=== PATIENT | female | born 1955 | race Two or more races ===

== ENCOUNTER 2018-12-15 18:57 | Emergency (ER) | payer OTHER ==
[~2018-12-15] VITALS: Ht 154.9 cm; Wt 81.6 kg
[2018-12-15] MEDS ORDERED: PROTONIX40 MG (19:09)
[2018-12-15] MEDS ORDERED: CRESTOR20 MG (19:10)
[2018-12-15] MEDS ORDERED: FENOFIBRATE48 MG (19:10)
[2018-12-15] MEDS ORDERED: ZANTAC300 MG (19:11)
== END 2018-12-15 21:15 | disposition home or self-care (01) ==
LOC: ER 18:57
DX: K29.60 Other gastritis without bleeding (principal)

== ENCOUNTER 2021-04-07 07:35 | Day surgery (SDC) | payer OTHER ==
[~2021-04-07 07:35] MED LIST: CRESTOR20 MG; FENOFIBRATE48 MG; PROTONIX40 MG; ZANTAC300 MG
== END 2021-04-07 14:25 | disposition home or self-care (01) ==
LOC: AMB-ENDOS 07:35
PROVIDERS: ATTEND Colon & Rectal Surgery
DX: K57.32 Diverticulitis of large intestine without perforation or abscess without bleeding (principal); K64.1 Second degree hemorrhoids; Z20.822 Contact with and (suspected) exposure to COVID-19

== ENCOUNTER 2022-09-03 04:05 | Inpatient (IN) | payer OTHER ==
[~2022-09-03] VITALS: Ht 154.9 cm; Wt 74.8 kg
[2022-09-03] MEDS ORDERED: PEPCID20 MG (04:24)
[2022-09-03] MEDS ORDERED: ATACAND4 MG (04:24)
[2022-09-03] MEDS ORDERED: ANASTROZOLE1 MG (04:25)
== END 2022-09-06 16:00 | disposition home or self-care (01) | DRG 392 ==
LOC: ER 04:05 → SURH 13:47
PROVIDERS: ADMIT Colon & Rectal Surgery; ATTEND Colon & Rectal Surgery
PROC: 02HV33Z Insertion of Infusion Device into Superior Vena Cava, Percutaneous Approach (ICD-10-PCS; 2022-09-04)
PROC: BW21YZZ Computerized Tomography (CT Scan) of Abdomen and Pelvis using Other Contrast (ICD-10-PCS; principal; 2022-09-05)
DX: K29.70 Gastritis, unspecified, without bleeding (principal)

== ENCOUNTER 2024-05-20 10:30 | Emergency (ER) | payer OTHER ==
[~2024-05-20] VITALS: Ht 154.9 cm; Wt 71.7 kg
[~2024-05-20 10:30] MED LIST changes: +ANASTROZOLE1 MG; +ATACAND4 MG; +BUSPIRONE HCL7.5 MG; +CANDESARTAN CILE4 MG; +CITALOPRAM HBR10 MG; +FAMOTIDINE40 MG; +FENOFIBRATE160 MG; +FOLIC ACID1 MG; +GABAPENTIN100 M2; +PEPCID20 MG; +RESTORIL30 MG; +ROSUVASTATIN CA40 MG
[2024-05-20] MEDS ORDERED: CIPROFLOXACIN500 MG PO (10:50)
[2024-05-20] MEDS ORDERED: METRONIDAZOLE500 MG PO (10:50)
[2024-05-20] MEDS ORDERED: FAMOTIDINE/PF 20 MG/2 ML VIAL IV PUSH ONE (13:00)
[2024-05-20] MEDS ORDERED: METRONIDAZOLE/SODIUM CHLORIDE 500 MG/100 ML PIGGYBACK IV ONE (13:00)
[2024-05-20 13:39] LABS: HEMATOCRIT 43.1 % (36.0-45.00); HEMOGLOBIN 14.8 g/dL (12.0-15.00); MEAN CELL VOLUME 88.5 fL (80.00-100.00); MEAN CORPUSCULAR HEMOGLOBIN 30.5 pg (27.00-32.0); MEAN CORPUSCULAR HGB CONC 34.4 g/dl (32.0-36.0); PLATELET COUNT 207 K/uL (150-450); RED BLOOD COUNT 4.87 M/uL (4.00-6.00); RED CELL DISTRIBUTION WIDTH 13.3 % (11.5-14.5)
[2024-05-20 14:22] LABS: URINE APPEARANCE Clear; URINE BILIRRUBIN Negative (NEGATIVE); URINE BLOOD Negative; URINE COLOR Yellow; URINE GLUCOSE Negative (NEGATIVE); URINE KETONE 15 (NEGATIVE); URINE LEUKOCYTE Trace; URINE NITRATE Negative; URINE PROTEIN Negative (NEGATIVE); URINE UROBILINOGEN 0.2 E.U./dl
[2024-05-20 14:23] LABS: URINE BACTERIA 18.3 uL (0.0-1933); URINE EPITHELIAL CELLS 2.8 uL (0.0-38.8); URINE RBC 2.6 uL (0.0-20.8); URINE WBC 5.3 uL (0.0-23.2)
[2024-05-20 14:42] LABS: ALBUMIN 4.1 gm/dL (3.4-5.0); BILIRUBIN TOTAL 0.61 mg/dL (0.3-1.2); CALCIUM 9.8 mg/dL (8.5-10.1); CREATININE SERUM 0.68 mg/dL (0.55-1.02); GFR 86.04; GLOBULINA 3.5 G/DL (2.4-3.5); POTASSIUM 3.95 mEq/L (3.5-5.1); TOTAL PROTEIN 7.6 gm/dL (6.4-8.2)
[2024-05-20] MEDS ORDERED: PEPCID AC20 MG PO (18:19)
== END 2024-05-20 18:42 | disposition home or self-care (01) ==
LOC: ER 10:30
PROVIDERS: Emergency Medicine
DX: K57.30 Diverticulosis of large intestine without perforation or abscess without bleeding (principal)

== ENCOUNTER 2025-05-19 19:10 | Emergency (ER) | payer OTHER ==
[~2025-05-19] VITALS: Ht 165.1 cm; Wt 72.6 kg
[~2025-05-19 19:10] MED LIST changes: +CIPROFLOXACIN500 MG PO; +METRONIDAZOLE500 MG PO; +PEPCID AC20 MG PO
[2025-05-19 19:49] VITALS: BP 150/79; O2SAT 100
[2025-05-19] MEDS ORDERED: KETOROLAC TROMETHAMINE 30 MG VIAL IU ONE (20:15)
[2025-05-19] MEDS ORDERED: 0.9 % SODIUM CHLORIDE 1,000 ML IV ONE (20:15)
[2025-05-19] MEDS ORDERED: PANTOPRAZOLE SODIUM 40 MG/VIAL VIAL IV ONE (20:15)
[2025-05-19] MEDS ORDERED: ONDANSETRON HCL 2 MG/ML VIAL IV ONE (20:15)
[2025-05-19] MEDS ORDERED: ONDANSETRON HCL 2 MG/ML VIAL ONE (20:41)
[2025-05-19] MEDS ORDERED: KETOROLAC TROMETHAMINE 30 MG VIAL ONE (20:41)
[2025-05-19] MEDS ORDERED: BARIUM SULFATE 450 ML ORAL.SUSP PO ONE (21:24)
[2025-05-19 21:45] LABS: URINE APPEARANCE Clear; URINE BILIRRUBIN Negative (NEGATIVE); URINE BLOOD Negative; URINE COLOR Yellow; URINE GLUCOSE Negative (NEGATIVE); URINE KETONE Negative (NEGATIVE); URINE LEUKOCYTE Moderate; URINE NITRATE Negative; URINE PROTEIN Negative (NEGATIVE); URINE UROBILINOGEN 0.2 E.U./dl
[2025-05-19 21:46] LABS: URINE BACTERIA 45.7 uL (0.0-1933); URINE EPITHELIAL CELLS 8.1 uL (0.0-38.8); URINE WBC 78.8 uL (0.0-23.2)
[2025-05-19 21:51] LABS: URINE CAST 0.00 uL (0.0-1.40); URINE RBC 1.5 uL (0.0-20.8)
[2025-05-19 22:02] LABS: ALT/SGPT 12.0 U/L (12-78); AST/SGOT 21.0 U/L (15-37); BILIRUBIN TOTAL 0.44 mg/dL (0.3-1.2); BUN CREA RATIO 21.0 (7.0-25.0); CREATININE SERUM 0.82 mg/dL (0.55-1.02); GFR 69.12; GLOBULINA 3.5 G/DL (2.4-3.5); GLUCOSE FASTING 91.0 mg/dL (65-100); OSMOLALITY SERUM 284.0 MOSM/KG (275-295)
[2025-05-19 22:19] LABS: BASO % 0.4 % (0.1-1.2); EOS # 0.12 (0.04-0.54); EOS % 1.6 % (0.7-7.0); LYMPH # 1.98 (1.18-3.74); LYMPH % 26.9 % (19.3-53.1); MEAN PLATELET VOLUME 11.40 fl (9.4-12.4); MONO # 0.75 (0.24-0.82); MONO % 10.2 % (4.7-12.5); NEUT # 4.47 (1.56-6.13); NEUT % 60.6 % (34.0-71.1); RED CELL DISTRIBUTION WIDTH 12.5 % (11.6-14.4)
[2025-05-20] MEDS ORDERED: PEPCID AC20 MG PO (02:23)
[2025-05-20] MEDS ORDERED: CIPROFLOXACIN500 MG PO (02:23)
[2025-05-20] MEDS ORDERED: DICY20TA PO (02:23)
[2025-05-20] MEDS ORDERED: METRONIDAZOLE500 MG PO (02:23)
[2025-05-20] MEDS ORDERED: INTESTINEX680 M1 PO (02:23)
== END 2025-05-20 02:27 | disposition home or self-care (01) ==
LOC: ER 19:10
PROVIDERS: General Practice
DX: K57.32 Diverticulitis of large intestine without perforation or abscess without bleeding (principal); R10.9 Unspecified abdominal pain; R11.0 Nausea; R30.0 Dysuria
CPT/HCPCS: 36415; 74177; 96365; 96366; 99284; J1885; J2405; J7030; Q9965